=== PATIENT | female | born 1940 | race Caucasian/White ===

== ENCOUNTER 2017-04-27 19:06 | Emergency (ER) | payer MEDICARE ==
[~2017-04-27 19:06] MED LIST: Sodium Chloride Irrig Solution 250 ML BOT ONE
[2017-04-27] MEDS ORDERED: Lidocaine 1% 20 ML MDV ONE (19:23)
[2017-04-27] MEDS ORDERED: Triple Antibiotic Oint 1 GM Packet ONE (19:46)
--- NOTE | 2017-04-27 20:37 | RAD ---
RIGHT FOREARM TWO VIEWS: History: Forearm injury. FINDINGS: The bones appear demineralized. There are arthritic changes of the wrist. There are no signs of frac ture or dislocation. IMPRESSION: No evidence of fracture. POS: [facility]
[2017-04-27] MEDS ORDERED: Cephalexin 500 MG CAP ONE (21:32)
== END 2017-04-27 21:50 | disposition home or self-care (01) ==
LOC: MADERS 19:06
DX: S51.811A Laceration without foreign body of right forearm, initial encounter (principal); I10 Essential (primary) hypertension; K21.9 Gastro-esophageal reflux disease without esophagitis; Z79.82 Long term (current) use of aspirin; Z79.899 Other long term (current) drug therapy; W45.8XXA Other foreign body or object entering through skin, initial encounter
CPT/HCPCS: 12002; J2001

== ENCOUNTER 2017-05-05 11:40 | Outpatient (CLI) | payer MEDICARE | END 2017-05-05 11:41 | disposition home or self-care (01) | LOC: MADLABBHPM 11:40 | PROVIDERS: ATTEND Family Medicine | DX: T14.8 Other injury of unspecified body region (principal) | CPT/HCPCS: 36415; 87070; 87205 ==

== ENCOUNTER 2018-05-24 08:50 | Outpatient (CLI) | payer MEDICARE ==
[2018-05-24 09:22] LABS: #Basophils 0.1 thou/uL (0.0-0.2); #Eosinphils 0.3 thou/uL (0.0-0.7); #Lymphocytes 1.3 thou/uL (1.20-3.40); #Monocytes 0.6 thou/uL (0.11-0.59); #Neutrophils 2.7 thou/uL (1.40-6.50); %Basophils 1.3 % (0.0-1.0); %Lymphocytes 25.8 % (21.0-51.0); %Monocytes 12.2 % (0.0-10.0); %Neutrophils 54.8 % (42.0-75.0); Hemoglobin 12.8 g/dL (12.0-16.0); Mean Corpuscular HGB CONC 33.8 g/dL (32.0-36.0); Mean Corpuscular Hemoglobin 33.5 pg (27.0-31.0); Mean Corpuscular Volume 99.1 fL (78.0-98.0); Platelet Count 294 thou/uL (130-400); RBC Distribution Width 11.4 % (11.5-14.5); Red Blood Cell (RBC) Count 3.82 mill/uL (4.20-5.40); White Blood Cell (WBC) Count 4.9 thou/uL (4.8-10.8)
[2018-05-24 09:37] LABS: ALT (SGPT) 49 U/L (8-55); AST (SGOT) 37 U/L (5-34); Albumin 4.1 g/dL (3.4-4.8); Alkaline Phosphatase 88 U/L (40-150); Anion Gap 18 mmol/L (10-20); BUN (Urea Nitrogen) 18 mg/dL (9.8-20.1); Bilirubin, Direct 0.2 mg/dL (0.1-0.3); Bilirubin, Total 0.3 mg/dL (0.2-1.2); Calc. Creatinine Clearance 0 mL/min (70-130); Carbon Dioxide 24 mmol/L (23-31); Cardiac Risk 1.9 (Less than 4.5); Chloride 103 mmol/L (98-107); Cholesterol 185 mg/dl (< 200 Desired); Estimated GFR-MDRD 63; Glucose 107 mg/dL (83-110); HDL Cholesterol 97 mg/dL (>60 Neg Risk); LDL Cholesterol, Calculated 79 mg/dL; Potassium 4.5 mmol/L (3.5-5.1); Sodium 140 mmol/L (136-145); Triglycerides 46 mg/dL (Less than 150)
[2018-05-24 17:15] LABS: Dilantin 16.5 ug/mL (10.0-20.0)
== END 2018-05-24 08:51 | disposition home or self-care (01) ==
LOC: MADLABBHPM 08:50
PROVIDERS: ATTEND Family Medicine
DX: E78.5 Hyperlipidemia, unspecified (principal); G40.909 Epilepsy, unspecified, not intractable, without status epilepticus; D64.9 Anemia, unspecified; I10 Essential (primary) hypertension
CPT/HCPCS: 36415; 80048; 80061; 80076; 80185; 85025

== ENCOUNTER 2020-08-03 11:23 | Emergency (ER) | payer MEDICARE ==
[2020-08-03 12:19] LABS: PTT 26.4 sec (22.9-36.1); Prothrombin Time 12.9 sec (12.0-14.7)
[2020-08-03 12:36] LABS: ALT (SGPT) 19 U/L (8-55); AST (SGOT) 23 U/L (5-34); Albumin 4.1 g/dL (3.4-4.8); Alkaline Phosphatase 98 U/L (40-110); Anion Gap 16 mmol/L (10-20); BUN (Urea Nitrogen) 15 mg/dL (9.8-20.1); Bilirubin, Total 0.4 mg/dL (0.2-1.2); Calc. Creatinine Clearance 0 mL/min (70-130); Calcium 8.8 mg/dL (7.8-10.44); Carbon Dioxide 28 mmol/L (23-31); Chloride 100 mmol/L (98-107); Estimated GFR-MDRD 72; Globulin 2.9 g/dL (2.4-3.5); Glucose 99 mg/dL (83-110); Potassium 3.7 mmol/L (3.5-5.1); Sodium 140 mmol/L (136-145)
[2020-08-03 12:52] LABS: #Eosinphils 0.1 thou/uL (0.0-0.7); #Monocytes 0.8 thou/uL (0.11-0.59); #Neutrophils 4.9 thou/uL (1.40-6.50); %Basophils 0.7 % (0.0-1.0); %Eosinophils 1.5 % (0.0-10.0); %Lymphocytes 14.8 % (21.0-51.0); Hemoglobin 12.2 g/dL (12.0-16.0); Mean Corpuscular HGB CONC 32.2 g/dL (32.0-36.0); Mean Corpuscular Hemoglobin 32.4 pg (27.0-31.0); Mean Corpuscular Volume 100.6 fL (78.0-98.0); Mean Platelet Volume 6.5 fL (7.4-10.4); Platelet Count 301 thou/uL (130-400); RBC Distribution Width 11.4 % (11.5-14.5); Red Blood Cell (RBC) Count 3.77 mill/uL (4.20-5.40); White Blood Cell (WBC) Count 6.9 thou/uL (4.8-10.8)
[2020-08-03] MEDS ORDERED: Bacitracin 1 PK ONE (12:52)
--- NOTE | 2020-08-03 12:52 | CT ---
CT Brain WO Con: 08/03/2020 11:55 AM CLINICAL HISTORY: Fall downstairs. IMAGING TECHNIQUE: Multiple CT images were obtained of the brain without IV contrast. COMPARISON: None. FINDINGS: BRAIN: Evidence of acute infarct: None. Evidence of chronic ischemic change:Mild chronic small vessel matter ischemic change Evidence of intracranial hemorrhage: None. Evidence of midline shift: Third ventricle and septum pellucidum are midline. Ventricles: Normal. No hydrocephalus. SKULL: Intact. VISUALIZED PARANASAL SINUSES: Clear. MASTOID AIR CELLS: Clear. EXTRACRANIAL SOFT TISSUES: Normal. IMPRESSION: No acute intracranial abnormality.
--- NOTE | 2020-08-03 12:54 | CT ---
CT Cervical Spine WO Con Indication: Fall downstairs with neck pain COMPARISON: None. FINDINGS: Fracture: None. Spinal alignment: There is anterolisthesis of C3 on C4 with retrolisthesis of C4 on C5 and C5 on C6 w hich is likely degenerative. Craniocervical junction: Within normal limits. Vertebral body heights: Maintained. Cervical spine degenerative change: There is ankylosis of the right C2 C3-C4 facet complexes and the left C2-C3 facet complexes. There is moderate to severe multilevel cervical spondylosis. Lung apices: There is bilateral pleural parenchymal scarring involving both lung apices. IMPRESSION: No acute osseous abnormality.
--- NOTE | 2020-08-03 13:01 | RAD ---
EXAM: XR Hand Rt 3 View STANDARD PROVIDED CLINICAL HISTORY: Pain FINDINGS: There is no evidence for fracture or other acute osseous abnormality. Alignment appears anatomic. Deg enerative changes are seen at first CMC joint. IMPRESSION: No evidence for an acute osseous abnormality. If there is persistent clinical concern, conservative m anagement and follow-up imaging advised.
== END 2020-08-03 13:50 | disposition home or self-care (01) ==
LOC: MADERS 11:23
DX: S41.111A Laceration without foreign body of right upper arm, initial encounter (principal); S81.811A Laceration without foreign body, right lower leg, initial encounter; S60.221A Contusion of right hand, initial encounter; G20 Parkinson's disease; Z79.899 Other long term (current) drug therapy; W18.30XA Fall on same level, unspecified, initial encounter
CPT/HCPCS: 70450; 72125; 80053; 85025; 85610; 85730; 94760

== ENCOUNTER 2021-02-04 10:56 | Outpatient (CLI) | payer MEDICARE ==
[2021-02-04 11:12] LABS: #Basophils 0.1 thou/uL (0.0-0.2); #Eosinphils 0.1 thou/uL (0.0-0.7); #Monocytes 0.6 thou/uL (0.11-0.59); #Neutrophils 3.6 thou/uL (1.40-6.50); %Basophils 1.2 % (0.0-1.0); %Eosinophils 1.7 % (0.0-10.0); %Lymphocytes 18.1 % (21.0-51.0); %Monocytes 10.8 % (0.0-10.0); %Neutrophils 68.2 % (42.0-75.0); Hemoglobin 12.7 g/dL (12.0-16.0); Mean Corpuscular HGB CONC 32.1 g/dL (32.0-36.0); Mean Corpuscular Hemoglobin 32.9 pg (27.0-31.0); Mean Corpuscular Volume 102.3 fL (78.0-98.0); Platelet Count 254 thou/uL (130-400); RBC Distribution Width 11.5 % (11.5-14.5); Red Blood Cell (RBC) Count 3.87 mill/uL (4.20-5.40); White Blood Cell (WBC) Count 5.3 thou/uL (4.8-10.8)
[2021-02-04 11:29] LABS: ALT (SGPT) 21 U/L (8-55); AST (SGOT) 21 U/L (5-34); Albumin 3.9 g/dL (3.4-4.8); Alkaline Phosphatase 102 U/L (40-110); Anion Gap 14 mmol/L (10-20); BUN (Urea Nitrogen) 13 mg/dL (9.8-20.1); Bilirubin, Total 0.3 mg/dL (0.2-1.2); Calc. Creatinine Clearance 0 mL/min (70-130); Calcium 8.6 mg/dL (7.8-10.44); Carbon Dioxide 28 mmol/L (23-31); Cardiac Risk 2.3 (Less than 4.5); Chloride 103 mmol/L (98-107); Cholesterol 178 mg/dl (< 200 Desired); Globulin 2.8 g/dL (2.4-3.5); Glucose 99 mg/dL (83-110); HDL Cholesterol 79 mg/dL (>60 Neg Risk); LDL Cholesterol, Calculated 87 mg/dL; Potassium 3.8 mmol/L (3.5-5.1); Protein, Total 6.7 g/dL (5.8-8.1); Sodium 141 mmol/L (136-145); Triglycerides 59 mg/dL (Less than 150)
[2021-02-04 17:21] LABS: Dilantin 10.5 ug/mL (10.0-20.0)
== END 2021-02-04 10:57 | disposition home or self-care (01) ==
LOC: MADLAB 10:56
PROVIDERS: ATTEND Family Medicine
DX: E78.5 Hyperlipidemia, unspecified (principal); I10 Essential (primary) hypertension; D64.9 Anemia, unspecified; G40.909 Epilepsy, unspecified, not intractable, without status epilepticus
CPT/HCPCS: 36415; 80053; 80061; 80185; 85025

== ENCOUNTER 2021-04-05 01:27 | Emergency (ER) | payer MEDICARE ==
[2021-04-05 02:37] LABS: #Basophils 0.1 thou/uL (0.0-0.2); #Eosinphils 0.1 thou/uL (0.0-0.7); #Lymphocytes 1.6 thou/uL (1.20-3.40); #Monocytes 0.8 thou/uL (0.11-0.59); #Neutrophils 4.4 thou/uL (1.40-6.50); %Basophils 0.9 % (0.0-1.0); %Lymphocytes 23.3 % (21.0-51.0); %Monocytes 11.1 % (0.0-10.0); %Neutrophils 62.7 % (42.0-75.0); Hemoglobin 13.2 g/dL (12.0-16.0); Mean Corpuscular HGB CONC 32.1 g/dL (32.0-36.0); Mean Corpuscular Volume 102.8 fL (78.0-98.0); Mean Platelet Volume 6.5 fL (7.4-10.4); Platelet Count 338 thou/uL (130-400); RBC Distribution Width 11.1 % (11.5-14.5); Red Blood Cell (RBC) Count 4.01 mill/uL (4.20-5.40)
[2021-04-05 03:06] LABS: Acetaminophen Less than 6.0 mcg/mL (10.0-30.0); Alcohol Less than 10 mg/dL (Less than 10); CK (CPK) 60 U/L (29-168); Salicylate Less than 8.0 mg/dL (15.0-30.0)
[2021-04-05 03:08] LABS: ALT (SGPT) 26 U/L (8-55); AST (SGOT) 25 U/L (5-34); Alkaline Phosphatase 105 U/L (40-110); Anion Gap 13 mmol/L (10-20); BUN (Urea Nitrogen) 14 mg/dL (9.8-20.1); Bilirubin, Total 0.2 mg/dL (0.2-1.2); Calc. Creatinine Clearance 0 mL/min (70-130); Calcium 9.1 mg/dL (7.8-10.44); Carbon Dioxide 28 mmol/L (23-31); Chloride 103 mmol/L (98-107); Globulin 3.1 g/dL (2.4-3.5); Glucose 121 mg/dL (83-110); Potassium 3.7 mmol/L (3.5-5.1); Protein, Total 7.1 g/dL (5.8-8.1); Sodium 140 mmol/L (136-145)
[2021-04-05 03:29] LABS: Bilirubin Negative (Negative); Blood, Urine Trace (Negative); Clarity Clear (Clear); Glucose, Urine (Dipstick) Negative (Negative); Ketone, Urine Negative (Negative); Leukocyte Small (Negative); Nitrite Negative (Negative); Protein, Urine (Dipstick) Negative (Neg-Trace); Specific Gravity, Urine 1.025 (1.005-1.030); Urobilinogen 0.2 mg/dL (Less than 2); pH, Urine 6.5 (5.0-9.0)
[2021-04-05 03:41] LABS: Bacteria/HPF 2+ HPF (None Seen); Squamous Epithelial Greater than 50 HPF (0-3)
[2021-04-05 03:42] LABS: Amphetamine Not Detected (NotDetected); Barbiturates Screen Detected (NotDetected); Benzodiazepine Screen Detected (NotDetected); Cocaine Metabolite Screen Not Detected (NotDetected); Medtox Control Line Valid? VALID (VALID); Methadone Not Detected (NotDetected); Methamphetamine Not Detected (NotDetected); Opiate Screen Not Detected (NotDetected); Oxycodone Screen Not Detected (NotDetected); Phencyclidine (PCP) Not Detected (NotDetected); THC/Cannabinoid Screen Not Detected (NotDetected); Tricyclic Screen Not Detected (NotDetected); Yeast-Budding Rare HPF (None Seen)
[2021-04-05] MEDS ORDERED: Diazepam 5 MG TAB ONE (04:05)
[2021-04-05] MEDS ORDERED: Cephalexin 500 MG CAP ONE (04:09)
== END 2021-04-05 04:13 | disposition home or self-care (01) ==
LOC: MADERS 01:27
DX: F13.239 Sedative, hypnotic or anxiolytic dependence with withdrawal, unspecified (principal); N39.0 Urinary tract infection, site not specified; R25.1 Tremor, unspecified; I10 Essential (primary) hypertension; K21.9 Gastro-esophageal reflux disease without esophagitis; Z79.899 Other long term (current) drug therapy; Z79.82 Long term (current) use of aspirin; Z79.891 Long term (current) use of opiate analgesic
CPT/HCPCS: 80053; 80185; 80306; 80307; 81003; 81015; 82550; 84443; 85025; 99284